=== PATIENT | female | born 1985 | race Caucasian/White ===

== ENCOUNTER → 2019-11-14 14:12 | Outpatient (CLI) | payer MEDICAID, SELFPAY ==
[2014-12-03 10:19] VITALS: BMI 32.5
[2019-11-14 14:18] LABS: Bacteria 0 SEEN /hpf (None Seen); Mucous, Urine 0 SEEN /hpf (<or=2+); Red Blood Cells-Urine 0 SEEN /hpf (0-5); White Blood Cells 0 SEEN /hpf (0-5)
[2019-11-14 15:13] LABS: hCG Titer Quant., Serum 40310 mIU/mL (1-3)
[2019-11-14 16:26] LABS: Color, Urine Yellow (Yellow); Glucose, Dipstick Normal (Normal); Ketone-Dipstick Negative (Negative); Leukocyte Esterase-Dipstick Negative /ul (Negative); Nitrite-Dipstick Negative (Negative); Occult Blood-Urine Negative /ul (Negative); Protein-Dipstick Negative (Negative); Urine Bilirubin Dipstick Negative (Negative); Urine Clarity Clear (Clear); Urine Urobilinogen Normal (Normal)
[2019-11-14 16:51] LABS: Squamous Epithelial Cells - UA 0-5 SEEN /hpf (5-10)
== END ==
PROVIDERS: Visit Provider Obstetrics & Gynecology
DX: Z34.81 Encounter for supervision of other normal pregnancy, first trimester (principal); Z12.4 Encounter for screening for malignant neoplasm of cervix; Z11.3 Encounter for screening for infections with a predominantly sexual mode of transmission; R10.9 Unspecified abdominal pain
CPT/HCPCS: 81001; 84702; 87086

== ENCOUNTER → 2019-11-21 14:35 | Outpatient (CLI) | payer MEDICAID, SELFPAY ==
[2019-11-21 15:40] LABS: Color, Urine Straw (Yellow); Glucose, Dipstick Normal (Normal); Ketone-Dipstick Negative (Negative); Leukocyte Esterase-Dipstick Negative /ul (Negative); Nitrite-Dipstick Negative (Negative); Occult Blood-Urine Negative /ul (Negative); Protein-Dipstick Negative (Negative); Specific Gravity, Urine 1.015 (1.002-1.030); Urine Bilirubin Dipstick Negative (Negative); Urine Clarity Clear (Clear); Urine Urobilinogen Normal (Normal)
[2019-11-21 15:42] LABS: Absolute Lymphocyte Count 2.36 X10^3/uL (0.83-4.51); Absolute Neutrophil Count 5.4 X10^3/uL (2.0-7.7); Basophil# 0.03 X10^3/uL; Basophil% 0.4 % (0-1); Eosinophil# 0.08 X10^3/uL; Hematocrit 43.9 % (37-47); Hemoglobin 14.9 g/dL (12.0-15.0); Lymphocyte # 2.36 X10^3/ul (4.0); Lymphocyte % 28.3 % (19-41); Mean Corp Hgb Conc 33.9 g/dL (32-36); Mean Corpuscular Hgb 29.8 pg (27.0-32.0); Mean Corpuscular Volume 87.8 fL (81-99); Monocyte# 0.41 X10^3/uL; Monocyte% 4.9 % (0-10); NRBC Flagged by Analyzer 0 % (0-5); Neutrophil # 5.42 X10^3/uL (2.7-7.7); Platelet Count 380 K/mm3 (150-450); RBC Distribution Width CV 11.9 % (11.6-14.6); RBC Distribution Width SD 38.4 fl (35.1-43.9); White Blood Count 8.3 K/mm3 (4.4-11.0)
[2019-11-21 16:03] LABS: Thyroid Stim Hormone (TSH) 2.49 uIU/mL (0.358-3.74)
[2019-11-21 16:19] LABS: Amphetamine Urine VISTA NEGATIVE (<1000 ng/mL); Barbiturate Urine VISTA NEGATIVE (< 200 ng/mL); Benzodiazepine Urine VISTA NEGATIVE (< 200 ng/mL); Cocaine Urine VISTA NEGATIVE (< 300 ng/mL); Ecstacy Urine VISTA NEGATIVE (< 500 ng/mL); Methadone Urine VISTA NEGATIVE (< 300 ng/mL); PCP Urine VISTA NEGATIVE (< 25 ng/mL); THC Urine VISTA NEGATIVE (< 50 ng/mL); Vista UDS pH Range 5
[2019-11-22 01:52] LABS: Prenatal RPR NONREACTIVE (NONREACTIVE)
[2019-11-22 11:22] LABS: HIV - WCH Non-Reactive (Nonreactive); Hepatitis B Surface Antigen Non-Reactive (Nonreactive); Hepatitis C Antibody Non-Reactive (Nonreactive)
== END ==
PROVIDERS: Visit Provider Obstetrics & Gynecology
DX: Z34.81 Encounter for supervision of other normal pregnancy, first trimester (principal)
CPT/HCPCS: 36415; 80307; 81002; 84443; 85025; 86703; 86762; 86803; 87340

== ENCOUNTER → 2020-04-07 15:35 | Outpatient (CLI) | payer MEDICAID, SELFPAY ==
[2020-04-07 17:08] LABS: Hematocrit 37.6 % (37-47); Hemoglobin 12.6 g/dL (12.0-15.0); Mean Corp Hgb Conc 33.5 g/dL (32-36); Mean Corpuscular Hgb 29.9 pg (27.0-32.0); Mean Corpuscular Volume 89.3 fL (81-99); Mean Platelet Vol. 10.8 fl (6.2-12.0); Platelet Count 297 K/mm3 (150-450); RBC Distribution Width CV 13.2 % (11.6-14.6); RBC Distribution Width SD 42.6 fl (35.1-43.9); Red Blood Count 4.21 M/mm3 (4.2-5.4); White Blood Count 11.9 K/mm3 (4.4-11.0)
[2020-04-07 17:13] LABS: Glucose Challenge Gest 1H 50g 104 mg/dL (70-140)
== END ==
PROVIDERS: Visit Provider Obstetrics & Gynecology
DX: Z34.83 Encounter for supervision of other normal pregnancy, third trimester (principal)
CPT/HCPCS: 36415; 82950; 85027

== ENCOUNTER → 2020-05-29 | Outpatient (CLI) | payer MEDICAID, SELFPAY ==
[2014-12-03 10:19] VITALS: BMI 32.5
== END | disposition home or self-care (01) ==
PROVIDERS: Referring Provider Obstetrics & Gynecology; Visit Provider Obstetrics & Gynecology
DX: Z36.85 Encounter for antenatal screening for Streptococcus B (principal)
CPT/HCPCS: 87077; 87081; 87186

== ENCOUNTER → 2020-06-20 | Outpatient (CLI) | payer MEDICAID, SELFPAY | END | disposition home or self-care (01) | LOC: MTDU 17:55 | PROVIDERS: Referring Provider Obstetrics & Gynecology; Visit Provider Obstetrics & Gynecology | DX: Z11.59 Encounter for screening for other viral diseases (principal) | CPT/HCPCS: 87635; 94799; U0003 ==

== ENCOUNTER 2020-06-26 05:00 | Inpatient (IN) | payer MEDICAID, SELFPAY ==
[2014-12-03 10:19] VITALS: BMI 32.5
--- NOTE | 2020-06-25 17:07 | PCM.HP.BLA ---
History and Physical Date of Admission: 06/26/20 ACOG ANTEPARTUM RECORD - HISTORY AND PHYSICAL (06/25/2020) Name: YU KLEIN History of This : This is a 35-year-old Ab1 who presents for repeat . She has had 2 prior section. care has otherwise been uneventful. OB Physician: KEL Iredell's Physician: Dr. Deneen Ross ...................................................................... : 1985 Age: 35 Address: [address] [place] [address] Phone: H) [phone] (O) [phone] Insurance Carrier: [facility] CLAIMS DEPT [id number] Emergency Contact: CHRISTOPHER KLEIN/ [phone] ...................................................................... Final MELISSA: 06/26/20 By Ultrasound: 8 weeks 6 days PARITY: (G-Total Pregnancies P-Fullterm,Premature,Induced AB,Spont AB, Ectopics, Multiple,Living) MELISSA CONFIRMATION: By LMP: 09/20/19 Initial Exam: 06/26/20 By First Ultrasound Exam: 06/29/20 Final MELISSA: 06/26/20 OB PROBLEM LIST: ?cHTN AMA (will be 35 years old before MELISSA) EPDS = 4 MSAFP and CF testing declined Previous C/S x 2, plans repeat C/S (contemplating a tubal) Repeat heart views at 28wga. ALLERGIES: latex Itching NKDA MEDICATIONS: 28 mg iron-800 mcg tablet daily SOCIAL HISTORY: Smoking - Never Alcohol Use - denies drinking Diet - moderate, balanced diet Lifestyle - low stress lifestyle and Exercise - minimal Employer - [employer] Job Description - Illicit Drug Use - denies use of street drugs Sexual Activity - Residence - lives with Place of - [place], [place] Spouse-Sig Other Name - Christopher Spouse-Sig Other Occupation - Self-employed contractor Spouse-Sig Other Phone No - [phone] Children Name(s) - Patti (ELB), Maxx (ELB) PRIOR DELIVERY HISTORY DEL DATE GEST LAB WT LB WT OZ TYPE ANES LABOR TX 03 Dec 15 39 0 7 14 C-Sec Spinal No 13 Jul 13 41 8 8 0 C-Sec Epidural No 29 March 12 8 0 0 0 Sab General No ANTEPARTUM FLOW CHART VISIT GE RTC FU F F VA U U DATE WK MD WKS HT PN HR M SS BP ED WT VA GL D EF ST __ ____ ___ __ __ ___ __ __ __ ___ __ __ __ ___ __ 20 May 39 JMW 1 38 + + 138/88 0 228 - - May 38 CH 1 38 V + + 130/80 0 230 - - 04 May 36 CH 1 39 V + + 130/90 0 227 tr - Apr 36 CH 1 37 V + + 130/90 0 226 tr - Apr 34 CH 2 36 V + + 140/80 sl 222 tr - 24 Apr 29 JMW 4 31 + + 144/78 0 219 - - 08 Apr 27 CH 2 30 on + 150/82 0 215 tr - March 23 CH 4 + / 211 10 Feb 17 SHM 4 21 + + 130/82 0 206 tr - Dec 12 CH 4 + ? 138/80 0 203 - - 06 Dec 11 CH 2 on US 135/90 203 tr - Nov 07 CH 4 on US 130/90 0 203 - - ANTEPARTUM NOTE(S): Jun 19 2020: Preop and PNV Jun 12 2020: Jun 03 2020: feeling well. May 29 2020: feeling well. GBS and LARC today. AM May 16 2020: feeling well. BP at homes are all in normal range. Apr 23 2020: see note, BP 116/64 at home, No PIH Sxs Apr 07 2020: feeling well. Mar 07 2020: still nauseas at times Feb 07 2020: comp u/s today Dec 19 2019: feeling well. Dec 06 2019: spotting Nov 21 2019: nausea. US and NOB today. COMPREHENSIVE ANTEPARTUM NOTE(S): Jun 19 2020: Yu is here for a PNV/ Preop. Good FM. No edema. No complaints or concerns expressed. scheduled for 06/26. Advised to get COVID-19 testing today if possible. paper work reviewed and signed. Ensure drink given. Advised to call with any questions before if necessary. MK Jun 19 2020: Covid-19 screening Order faxed to [phone] and Yu is calling to schedule to have done today if possible as she lives in [place]. JOANIE Jun 12 2020: Yu is her for her PNV today. Good FM. No edema. SVE offered and she declined it today. No questions or concerns expressed today. LJW Jun 12 2020: Reports +FM. FHR 148-155. Has Csection scheduled and no complaints or concerns. Will return next week for pre-op appt. Plans to review surgical stitching as she would like the technique used with her Maxx, not Patti. Dr. Jones let her know it was a different technique she used. Plans to discuss BTL at that appt and still unsure, but consents signed - Jun 03 2020: H taken to OB. tkg Jun 03 2020: Reviewed +GBS from last visit, but Csection is planned. Reports +FM. FHR 143. To return in 1 week for PNV. Reviewed Covid-19 testing prior to Csection. Had hospital video orientation yesterday which she really enjoyed- May 29 2020: Csection is scheduled 06-26-20 at 0730. Reports +FM. FHR 138. GBS collection today. Will start weekly appts - May 16 2020: BP this AM 108/70 at home. Has very low pelvic pressure. Painful vagina with lightening feeling. Did get support belt which helps. Will get GBS at next visit and LARC. BTL papers signed today. Will get Covid testing done at 38-39 weeks with Csections scheduled at 40 weeks. - Apr 23 2020: Yu is here for a PNV. Good FM. No edema unless on feet for long periods of time. No complaints or concerns expressed. Apr 07 2020: Reports +FM. FHR 159. Repeat US today reveals AGA with all heart views visualized. Third trimester labs done and will call if abnormal. Feeling well with no concerns. Will meet Dr. Zamorano at next visit to discuss csection scheduling and possible BTL. BTL discussion and will talk about it with her . To return in 2 weeks for routine PNV. - Mar 07 2020: Telehealth appt today. BPs at home 106/82, 114/85, and 105/82. These are her averages at home. Feels lots of +FM and really low. Glucola next visit with 3rd trimester labs and repeat US. Now 211 at home. Was so shocked it was a girl. Really thought it was a boy. Taking Unisom at HS and still nauseas, but better than before in the morning. Would like Dr. Zamorano to do her csection. Requests Yolanda as her nurse in [place]. To return in 4 weeks for repeat US and pnv with 3rd trimester labs. 15minutes . - Feb 08 2020: Anatomy scan wnl, limited heart views however. FEMALE, placenta FUNDAL. Repeat views at 28wga. BPs reviewed and ?cHTN vs. white coat component. Rx automated BP monitor. Reviewed how to take BP 1-2x/week and record. No hardship at this time due to pandemic. 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 Jan 16 2020: Tele appt today due to Covid-19 precautions. Reports feeling well with good FM. Understands Covid-19 precautions and advised when to call. Denies any spotting since last visit. Anatomy US scheduled for 4 weeks. If pandemic is still happening, will come in to office for US and do visit with CNM via telehealth again. Was having anxiety so bought a doppler. It took her awhile to find it and her stomach hurts, but she was able to find it. Reviewed with anterior placenta and fibroid it would be harder to locate. If having anxiety, no FM and concerned she can always call for a FHR check. Reviewed office still being open and nurse triage line with provider pottery decoration designer 23/05. 10 minutes spent on the phone. - Dec 19 2019: (f,m,*) Routine PNV. Reports spotting has stopped and feels reassured. FHR today 160. More nauseas with this , but starting to feel better. Feeling well with start of 2nd trimester. Plans repeat csection with BTL. Will return in 4 weeks for routine PNV. - Dec 06 2019: Called in with brown/red spotting and discharge associated with cramping. Very concerned because this never happened in her other pregnancies. Brought in today for US for reassurance. US shows IUP with no bleeding. Discussed spotting in early and fibroid s not present now. Reassurance given.Will return for routine visit. - Nov 21 2019: Dating ultrasound today reveals consistent with dates GA 8w6d MELISSA of 06/26/20. FHR 168. Anterior fibrois meauring 5.2cmx4.8cmx3.7cm. Will watch at 20 week ultrasound for growth. States has a significant history of fibroids and this is actually the first year shes had regular cycles in the last 5 due to her fibroids. Feeling well with mild nausea, but after two days of Unisom feels much better. NOB RN visit and labs today. Understands no news is good news. Will return in 4 weeks for routine PNV. - Nov 21 2019: Yu is here for her NOB visit at 8 w 6 d, she is a A1 with an MELISSA of 06/26/2020. She and , Christopher, who accompanies her today, have a 6 year old daughter and a nearly 5 year old son at home. Both children were delivered by C/S, and Yu plans to have a repeat C/S with a likely tubal at [facility]. She will breastfeed. Past history updated. Office practice patterns reviewed, including labs being collected today. Emergencies/danger signs to report, round ligament pain, reporting a suspected UTI, and common OTC medications approved/not approved for use during reviewed. Yu is a life long non-smoker, and she denies use of drugs or ETOH. Genetic Screening form completed, Yu will be 35 before MELISSA. MSAFP and CF testing declined, consent signed as such. She rakes an OTC vitamin that contains DHA, and states that she tolerates this well. She reports daily nausea, but states that she has not vomited. She wears Accupressure bracelets, and has been taking 1/2 tab of Unisom at bedtime, and states that she feels that they work, especially the Unisom. Encouraged small frequent meals with protein included throughout the day, as well as one gallon of water per 24 hours. Yu takes walks several times a week. Kegel exercises reviewed. Lifting restrictions discussed. Dietary and water needs during reviewed, including caloric needs, recommended weight gain, limiting caffeien to one cup a day, and limiting empty calories. Printed guide for food safety during provided with review. Yu states that she understands all information provided during NOB visit and that she has no questions following same. AW New Nov 14 2019: Yu is being seen for missed menses. . UPT in office is positive. LMP 1119. Pt is about 7 weeks and 6 days. MELISSA 06-26-20. Last pap 2017 WNL, pap due today. Cultured to be done today as well. Pt very anxious due to miscarriage prior. She would like to have HCGs done. Medications and allergies are up to date. AM Nov 14 2019: Here for missed menses appointment. UPT + in office. Now a (f,m,*). This was planned and welcomed. LMP known of 09/20/19 with MELISSA of 06/26/20 making her GA 7w6d. Educated on repeat with MD, but CNMs may provide care as well as PP care, well woman visits and problem visits. CNMs are not surgeons though. Understands practice collaboration. HCG today STAT for reassurance. Pap due today with GC/CT. Will send UA per request. BP slightly elevated, but looking through history this is her normal due to anxiety/white coat syndrome. For future appointments check at the end of appt. Will return in 1 week for dating US, HAIDER RN visit, labs and routine PNV. - REVIEW OF SYSTEMS: GENERAL - Denies fever, or chills SKIN - Denies rash, new skin lesions, or change in moles EYES - Denies blurred vision, or change in visual acuity EARS - Denies ear pain, or difficulty hearing NOSE - Denies nasal congestion, discharge, or bleeding MOUTH - Denies sore throat, or difficulty swallowing NECK - Denies pain or swelling RESPIRATORY - Denies shortness of breath, cough, wheezing CARDIOVASCULAR - Denies palpitations, chest pain, orthopnea, PND, peripheral edema, syncope or claudication GASTROINTESTINAL - Denies nausea, vomiting, diarrhea, constipation, Denies abdominal pain, melena and or bright red blood GENITOURINARY - Denies dysuria, frequency of urination, urgency, or hesitancy MUSCULOSKELETAL - Denies joint or muscle pain, or back pain NEUROLOGICAL - Denies localized numbness, weakness, or tingling PSYCHIATRIC - Denies depression, anxiety, substance abuse or suicide attempts ENDOCRINE - Denies heat or cold intolerance, weight loss or gain, increasing thirst HEMATO-IMMUNOLOGIC - Denies easy bruising, bleeding, oral ulcerations or recurrent infections GENETICS SCREENING: Age 35+ years: Yes Thalassemia: No Neural Tube Defect: No Down Syndrome: No DENIZ-SACHS: No Sickle Cell Disease: No Hemophilia: No Musc. Dystrophy: No Cystic Fibrosis: No-declines screening [place] Chorea: No Mental Retardation: No Fragile X: No Other genetic: No Other defects: No SABs/still births: Yes Drugs since LMP: No INFECTION HISTORY: High risk AIDS: No High risk Hepatitis: No Exposed to TB: No Exposed to Herpes: No Rash/viral illness since LMP: No History of STD: No MENSTRUAL HISTORY: *Menses Amount/Duration: 5-7Menses Regularity: RegularFrequency: monthlyMenarche (Age Onset): 11* PAST SUMMARY: PARITY: 1. Total Pregnancies............ 4 2. Full Term Pregnancies........ 2 3. Premature.................... 0 4. Abortions - Induced.......... 0 5. Abortions - Spontaneous...... 1 6. Ectopics..................... 0 7. Multiple Births.............. 0 8. Living Children.............. 2 PAST #1: Date of :.................. 03/29/12 Gestation Weeks:................ 8 Length of labor(hours):......... 0 Sex:............................ Weight-lbs:............... 0 Weight-oz:................ 0 Type of Delivery:............... Sab Type of Anesthesia:............. General Place of Delivery:.............. [place] Treatment of Labor?:.... No Comment: PAST #2: Date of :.................. 07/13/13 Gestation Weeks:................ 41 Length of labor(hours):......... 8 Sex:............................ F Weight-lbs:............... 8 Weight-oz:................ 0 Type of Delivery:............... C-Sect Type of Anesthesia:............. Epidural Place of Delivery:.............. [place] Treatment of Labor?:.... No Comment: PAST #3: Date of :.................. 02/03/15 Gestation Weeks:................ 39 Length of labor(hours):......... 0 Sex:............................ M Weight-lbs:............... 7 Weight-oz:................ 14 Type of Delivery:............... C-Sect Type of Anesthesia:............. Spinal Place of Delivery:.............. [place] Treatment of Labor?:.... No Comment: PHYSICAL EXAMINATION General Appearence: 35 yo female in no acute distress Vital Signs: AF, VSS Heart: RRR without rubs or gallops Lungs: CTA x 2 Breasts: deferred Abdomen: gravid Pelvis: Cervix: Not checked Presentation: cephalic Station: Not checked Fetus: Size: AGA Movement: present Heart: present Labs for : YU KLEIN since 09/30/2019 ORDER DATEIN DESCRIPTION VALUE UNITS RANGE A+ COMMENT CORONAVIRUS 19, RAKEL SENDOUT 06/20/20 NOTE Original Ordering Provider: Chris Zamorano COVID-19,RAKEL Not Detected Not Detected This test was developed and its performance characteristics determined by [employer]. This test has not been FDA cleared or approved. This test has been authorized by FDA under an Emergency Use Authorization (EUA). This test is only authorized for the duration of time the declaration that circumstances exist justifying the authorization of the emergency use of in vitro diagnostic tests for detection of SARS-CoV-2 virus and/or diagnosis of COVID-19 infection under section 564(b)(1) of the Act, 21 U.S.C. 360bbb-3(b)(1), unless the authorization is terminated or revoked sooner. When diagnostic testing is negative, the possibility of a false negative result should be considered in the context of a patient's recent exposures and the presence of clinical signs and symptoms consistent with COVID-19. An individual without symptoms of COVID-19 and who is not shedding SARS-CoV-2 virus would expect to have a negative (not detected) result in this assay. Reviewed by KEL CULTURE, GROUP B STREPTOCOCCUS 05/29/20 NOTE Original Ordering Provider: JESUS Lawler JOHN Culture ORGANISM 1: Streptococcus agalactiae (B) Amount Growth Growth Streptococcus agalactiae (B): REACTION Ampicillin $ <=0.25 S Benzylpenicillin NF <=0.06 S Ceftriaxone $ <=0.12 S Clindamycin $$ <=0.25 S Inducable Clindamycin Resistan NEG Linezolid $$$$ <=2 S Vancomycin $ 0.5 S Reference Range: S= Susceptible, I= Intermediate, R= Resistant MICS are expressed in micrograms per mL (NF) indicates non-formulary drug at [facility]. Approval by Infectious Disease Specialist required before non-formulary drugs may be ordered and/or dispensed. Testing performed on Vitek 2 instrument Reviewed by KEL Reviewed by KEL Reviewed by KEL GLUCOSE CHALLENGE GEST 1H 50G 04/07/20 NOTE Original Ordering Provider: JSEUS Lawler GLU GEST 50G 1H 104 mg/dL 70-140 Reviewed by KEL CBC-COMPLETE BLOOD CNT NO DIFF 04/07/20 NOTE Original Ordering Provider: JESUS Lawler WBC 11.9 K/mm3 4.4-11.0 H RBC 4.21 M/mm3 4.2-5.4 HGB 12.6 g/dL 12.0-15.0 HCT 37.6 % 37-47 MCV 89.3 fL 81-99 MCH 29.9 pg 27.0-32.0 MCHC 33.5 g/dL 32-36 RDW CV 13.2 % 11.6-14.6 RDW SD 42.6 fl 35.1-43.9 PLT 297 K/mm3 150-450 MPV 10.8 fl 6.2-12.0 Reviewed by KEL HEPATITIS C ANTIBODY 11/21/19 NOTE Original Ordering Provider: JESUS Lawler HEPATITIS C AB Non-Reactive Nonreactive Non Reactive: < 0.8 Equivocal: >/= 0.8 to < 1.0 Reactive: >/= 1.0 The CDC recommends that a reactive/equivocal HCV antibody result be followed up by the HCV Nucleic Acid Amplification test (390108) Reviewed by KEL HEPATITIS B SURFACE ANTIGEN 11/21/19 NOTE Original Ordering Provider: JESUS Lawler HEPB SURFACE AG Non-Reactive Nonreactive Reviewed by KEL HIV - [facility] 11/21/19 NOTE Original Ordering Provider: JESUS Lawler HIV - [facility] Non-Reactive Nonreactive Reviewed by KEL RUBELLA IGG 11/21/19 NOTE Original Ordering Provider: JESUS Lawler RUBELLA IGG 69.0 IU/mL Antibody results Interpretation of Immune Status < 5 IU/ml Presumed Non-immune 5 - < 10 IU/ml Equivocal > or = 10 IU/ml Presumed Immune Reviewed by KEL RPR 11/21/19 NOTE Original Ordering Provider: JESUS Lawler RPR NONREACTIVE NONREACTIVE Reviewed by KEL T AND S-NO CHARGE W/PNP 11/21/19 Reason for Type AND Screen/Red Cells: Surgery? N [facility]~[address] [place], [address]~ BLOOD TYPE GEL A POSITIVE N AB SCREEN GEL NEGATIVE N Reviewed by KEL URINE DRUG SCREEN (VISTA) 11/21/19 NOTE Original Ordering Provider: JESUS Lawler TO BE CONFIRMED CONFIRMATORY TESTING FOR ALL POSITIVE URINE DRUG SCREEN RESULTS WILL ONLY BE SENT OUT UPON PHYSICIAN ORDER. VISTA Urine Drug Screen methods provide only preliminary analytical test results. A more specific alternate chemical method must be used in order to obtain a confirmed analytical result. Gas chromatography/mass spectrometery (GC/MS) is the preferred confirmatory method. Clinical consideration and professional judgement should be applied to any drug of abuse test result, particularly when preliminary positive results are used. URINE TCA TESTING MUST BE ORDERED SEPARATELY. USE TEST MNEMONIC: [facility] UDS PH 5 AMPHETAMINES NEGATIVE <1000 ng/mL BARBITIURATES NEGATIVE < 200 ng/mL BENZODIAZIPINE NEGATIVE < 200 ng/mL COCAINE NEGATIVE < 300 ng/mL ECSTACY NEGATIVE < 500 ng/mL METHADONE NEGATIVE < 300 ng/mL OPIATES NEGATIVE < 300 ng/mL PCP NEGATIVE < 25 ng/mL THC NEGATIVE < 50 ng/mL Reviewed by KEL THYROID STIM HORMONE (TSH) 11/21/19 NOTE Original Ordering Provider: JESUS Lawler TSH 2.49 uIU/mL 0.358-3.74 Reviewed by KEL URINALYSIS, ROUTINE (DIPSTICK) 11/21/19 NOTE Original Ordering Provider: JESUS Lawler COLOR Straw Yellow CLARITY Clear Clear GLUCOSE, UR Normal mg/dl Normal BILIRUBIN URINE Negative mg/dL Negative KETONE UR Negative mg/dl Negative SP.GR. DIPSTX 1.015 1.002-1.030 PH UR 6.0 5.0 - 8.0 PROT DIPSTX Negative mg/dl Negative UROBILI Normal mg/dl Normal NITRITE UR Negative Negative OCCULT BLOOD-UR Negative /ul Negative LEUK ESTERASE Negative /ul Negative Reviewed by KEL CBC W/DIFF, AUTOMATED 11/21/19 NOTE Original Ordering Provider: JESUS Lawler WBC 8.3 K/mm3 4.4-11.0 RBC 5.00 M/mm3 4.2-5.4 HGB 14.9 g/dL 12.0-15.0 HCT 43.9 % 37-47 MCV 87.8 fL 81-99 MCH 29.8 pg 27.0-32.0 MCHC 33.9 g/dL 32-36 RDW CV 11.9 % 11.6-14.6 RDW SD 38.4 fl 35.1-43.9 PLT 380 K/mm3 150-450 MPV 10.0 fl 6.2-12.0 NEUT% 65.0 % 47-70 LY% 28.3 % 19-41 MONO% 4.9 % 0-10 EO% 1.0 % 0-5 BASO% 0.4 % 0-1 IM GRAN % 0.400 % 0.0-0.9 IG% - Immature Granulocytes (promyelocytes, myelocytes and metamyelocytes) > 1% indicates that a LEFT SHIFT is Present. ABSOLUTE NEUT 5.4 X10 3/uL 2.0-7.7 ABSOLUTE LYMPH 2.36 X10 3/uL 0.83-4.51 NRBC, FLAGGED 0 % 0-5 Reviewed by KEL CULTURE, URINE 11/14/19 NOTE Original Ordering Provider: JESUS Lawler Urine Culture Culture exhibits no growth. Reviewed by KEL Reviewed by KEL URINALYSIS, COMPLETE 11/14/19 NOTE Original Ordering Provider: JESUS Lawler COLOR Yellow Yellow CLARITY Clear Clear GLUCOSE, UR Normal mg/dl Normal BILIRUBIN URINE Negative mg/dL Negative KETONE UR Negative mg/dl Negative SP.GR. DIPSTX 1.010 1.002-1.030 PH UR 6.0 5.0 - 8.0 PROT DIPSTX Negative mg/dl Negative UROBILI Normal mg/dl Normal NITRITE UR Negative Negative OCCULT BLOOD-UR Negative /ul Negative LEUK ESTERASE Negative /ul Negative WBC 0 SEEN /hpf 0-5 RBC-UA 0 SEEN /hpf 0-5 SQUAM EPI 0-5 SEEN /hpf 5-10 BACTERIA 0 SEEN /hpf None Seen MUCUS, URINE 0 SEEN /hpf <OR=2+ Reviewed by KEL HCG TITER QUANT., SERUM 11/14/19 NOTE Original Ordering Provider: JESUS Lawler HCG QUANT. 01182 mIU/mL 1-3 H hCG levels with Gestational Age Gestational Age hCG mIU/mL (IU/L) 0.2 - 1 week 5 - 50 1-2 weeks 50 - 500 2-3 weeks 100 - 5000 3-4 weeks 500 - 39660 4-5 weeks 1000 - 32512 5-6 weeks 99418 - 100,000 6-8 weeks 78882 - 200,000 2-3 months 87712 - 100,000 Reviewed by KEL MISCELLANEOUS LAB PROCEDURE 11/14/19 NOTE Original Ordering Provider: JESUS Lawler [facility] LAB TEST IGP, Aptima HPV Age Gdln, CtNgTv Interpretation: NEGATIVE FOR INTRAEPITHELIAL LESION AND MALIGNANCY. Specimen Adequacy: Satisfactory for evaluation. Endocervical and/or squamous metaplastic cells (endocervical component) are present. Comments: The pap smear is a screening test designated to aid in the detection of pre-malignant and malignant conditions of the uterine cervix. It is not a diagnostic procedure and should not be used as the sole means of detecting cervical cancer. Both false-positive and false-negative reports do occur. This liquid based ThinPrep(R) pap test was screened with the use of an image guided system. Performed by Caryn Retana, Split Leather Mosser (ASCP) This nucleic acid amplification test detects fourteen high-risk HPV types (16,18,31,33,35,39,45,51,52,56,58,59,66,68) without differentiation. Age Gdln ACOG Testing 30-65 HPV Results: HPV Aptima: Negative Other Results: Chlamydia, Nuc. Acid Amp: Negative Gonococcus, Nuc. Acid Amp: Negative Trich vag by RAKEL: Negative TESTING PERFORMED AT [facility]. ORIGINAL REPORT ON FILE IN LAB CONTAINS ADDITIONAL TEST SITE INFORMATION. Reviewed by NICKOMAN PROVIDER SIGNATURE ( REQUIRED) Impression /Plan: 39+ week intrauterine for repeat . Contemplating a tubal. Preparations in progress for delivery.
[2020-06-26] VITALS (17 sets, daily range): BP systolic 107–153; BP diastolic 62–97; PULSE 71–103; RESP 16–18; TEMP 35.8–36.6; O2SAT 96–100; BMI 32.9
[2020-06-26] MEDS: Lactated Ringers 1,000 ML 999 ML IV (05:37)
[2020-06-26] MEDS: Acetaminophen 500 MG Tablet 1000 MG PO ×3 (05:38→19:27)
[2020-06-26 06:21] LABS: Absolute Neutrophil Count 6.4 X10^3/uL (2.0-7.7); Basophil# 0.04 X10^3/uL; Basophil% 0.4 % (0-1); Eosinophil# 0.09 X10^3/uL; Hematocrit 37.1 % (37-47); Hemoglobin 12.3 g/dL (12.0-15.0); Lymphocyte % 21.8 % (19-41); Mean Corp Hgb Conc 33.2 g/dL (32-36); Mean Corpuscular Hgb 29.7 pg (27.0-32.0); Mean Corpuscular Volume 89.6 fL (81-99); Mean Platelet Vol. 10.5 fl (6.2-12.0); Monocyte# 0.54 X10^3/uL; Monocyte% 5.9 % (0-10); NRBC Flagged by Analyzer 0 % (0-5); Neutrophil # 6.43 X10^3/uL (2.7-7.7); Neutrophil % 70.2 % (47-70); Platelet Count 280 K/mm3 (150-450); RBC Distribution Width CV 13.3 % (11.6-14.6); RBC Distribution Width SD 43.2 fl (35.1-43.9); Red Blood Count 4.14 M/mm3 (4.2-5.4); White Blood Count 9.2 K/mm3 (4.4-11.0)
[2020-06-26] MEDS: Lactated Ringers 1,000 ML 150 ML IV (06:36)
[2020-06-26] MEDS: Lactated Ringers 1,000 ML 100 ML IV (07:00)
[2020-06-26] MEDS: Sodium Citrate/Citric Acid 30 ML UDC PO (07:17)
[2020-06-26] MEDS: Cefazolin 2 GM in 0.9% Normal Saline 100 ML IV (07:17)
[2020-06-26 08:28] LABS: Chlamydia Trachomatis by PCR Negative (Negative); Neisserai gonorrhoeae by PCR Negative (Negative); Probe Check PASS; Sample Adequacy Control PASS; Specimen Processing Control PASS
--- NOTE | 2020-06-26 08:38 | OP.PCM_ITS ---
Delivery Classification: Scheduled Final MELISSA: 06/26/20 Final MELISSA Source: US <20 weeks Gestational age: 40 Weeks and 0 Days manager banquet: Javy Camilo Type of Anesthesia:: Spinal - With Duramorph Date of Procedure: 06/26/20 Pre-Operative Diagnosis: Prior Section, Desires Permanent Sterilization Post-Operative Diagnosis: Prior Section, Desires Permanent Sterilization Description of Procedure: Surgeon: Chris Zamorano MD, FACOG Anesthesia: Lucio Antunez CRNA Procedure: Repeat Low Transverse Cervical Caesarean Section And Bilateral Tubal Occlusion with Filshie Clips Findings: Viable female with Apgars of 9/9 in occiput anterior presentation with clear amniotic fluid and normal three-vessel placenta. Indication: This is a 35-year-old who presents for her third at 40 weeks gestation. care has otherwise been uneventful except that the patient desires permanent sterilization. She is considered this form of control for quite some time. The patient has been counseled regarding the risk and indications of this procedure including the possibility of bleeding infection and injury to surrounding structures such as bowel bladder. She also understands the permanent nature of her tubal, the failure rate of 1 to 2%, and the availability of other nonpermanent control options. All questions were answered. Procedure: Patient was taken to the operating room where after spinal anesthesia was placed, the patient was prepped and draped in usual sterile fashion and a Razo catheter was placed. The abdomen was entered through the patient's prior Pfannenstiel incision and peritoneum was entered bluntly. After developing a bladder flap on the lower uterine segment a low transverse incision was made on the uterus and head was easily delivered onto the operative field the nose mouth and oropharynx were bulb suctioned. Subsequently a viable female infant was born with Apgars of 9/9. The was noted to cry move all extremities vigorously on the operative field. The umbilical cord was doubly clamped and ligated and handed to the nursery personnel who were present for the delivery. Placenta was delivered and noted to be 3 vessels and normal. Uterus was exteriorized and remaining placental tissue was removed. The uterus was then closed in 2 layers first with running locked 0 Vicryl suture followed by a second imbricating layer with 0 Vicryl suture. 0 Vicryl suture was then used in a horizontal mattress interrupted fashion to affect final hemostasis of the uterine incision line. Normal fallopian tubes and ovaries were visualized and Filshie clips were placed approximately 1 to 2 cm from the uterine fundus on each fallopian tube. The uterus was returned to the pelvis. Hemostasis was noted and rectus abdominis muscles were reapproximated in the midline with interrupted Number 0 Vicryl suture in a horizontal mattress fashion. Fascia was closed with running Number 1 PDS Strata fix suture. Subcutaneous tissue was irrigated with copious amouts of saline solution and then closed with running 3- 0 Vicryl suture. Skin was closed with 4-0 monocryl suture in a running subcuticular fashion. Steri strips and a Mepilex dressing were placed across the incision. The patient tolerated the procedure well and was taken to the recovery room in satisfactory condition. Sponge, needle, and instrument counts were all reportedly correct. EBL was less than 500 cc. Ancef 2 gms IV was given prior to the procedure. Spicemen to Pathology: None Complications: None Amniotic Membrane Rupture Type: Spontaneous Amniotic Fluid Description: Clear Placenta Disposition: [facility] Specimen(s) sent to pathology: None Drain: Razo to straight drain Cord Entanglement: Around neck x 1, tight Cord Vessel Description: 3 Vessels Esitmated Blood Loss (ml): 500 cc Infant Gender: Female (1 minute): 9 (5 minute): 9 Antibiotic Given: Ancef 2 grams IV x1 Pt instructed on risks of surgery: Bleeding, Infection, Permanency, Failure Rate of 1 to 2%, Injury to surrounding structure(s) including bowel and bladder, Availability of other non-permanent control options - Admit VTE Documentation VTE Present on Admission: Yes VTE Mechan Device Prophylaxis: SCD's VTE Pharm Prophylaxis ordered?: Yes
--- NOTE | 2020-06-26 08:47 | DCINST_ITS ---
Discharge Diet: No Restrictions Discharge Activity: May Not Drive - for 2 weeks, May not drive while taking narcotic pain medications., May Shower, May Take a Tub Bath May resume sexual activity in: 4-6 weeks Lifting Restrictions: 20 pounds Additional Activity Instructions:: Nothing in the vagina for 4-6 weeks. You may return to work/school in 6 weeks. Call your doctor if your incision/area has: Continuous Slow Oozing, Sudden Increased Bleeding, Increased Pain/ Swelling, Increased Redness, Foul Smelling Discharge Call your doctor if you observe: Fever of 101 or Higher, Inability to urinate, Inability to have a bowel movement, Using more than one pad per hour Additional Instructions: If you experience any of the following, contact your healthcare provider. * Bleeding that soaks a pad every hour for 2 hours * Fever 100.4 or higher * Unrelieved incision or abdominal pain * Swelling, redness, discharge or bleeding from your incision or episiotomy site * Your incision begins to separate * Problems urinating (including inability to urinate or burning while urinating). * Visual changes * Severe headache * Flu-like symptoms * Pain or redness in one of both of your breasts * Pain, warmth, tenderness or swelling in your legs, especially the calf area * Frequent nausea and vomiting * Symptoms of depression or anxiety If you experience any of the following, call 911 or go to the nearest Emergency Room. * Chest pain * Problems breathing * Seizure activity * Partial or complete paralysis of a body part, slurred speech, weakness or drooping of the face, or a sudden inability to walk or hold your balance Allergies/Adverse Reactions: Allergies latex Allergy (Verified 06/26/20 05:33) Rash Medications to take at Discharge Vits [Prenatabs FA ] 1 tablet PO DAILY 12/02/14 Cetirizine HCl [Allergy Relief] 10 mg PO DAILY 06/26/20 Docusate Sodium [Colace] 100 mg PO BID PRN PRN #60 cap 06/26/20 Oxycodone [Oxyir] 5 mg PO Q6H PRN PRN 7 Days #20 tab 06/26/20 The following prescriptions were given: Docusate Sodium [Colace] 100 mg PO BID PRN PRN #60 cap PRN Reason: Constipation Transmission Status: Received by [facility] Oxycodone [Oxyir] 5 mg PO Q6H PRN PRN 7 Days #20 tab PRN Reason: Pain Score 6-10/10 Transmission Status: Received by [facility] Follow-Up: Call to make an appointment with your doctor for an incision check in 1-2 weeks. You will also need a 6 week post- follow up appointment. Test results from this visit will be discussed in further detail at your follow- up appointment, if applicable. Please Follow Up With: Chris Zamorano MD - [phone] When: Call to make an appointment for an incision check in 2 weeks. Primary Care Physician: Care Physician,No Primary [Primary Care Provider] -
[2020-06-26] MEDS: Oxytocin 30 units/NS 500 ml 30 UNITS/500 ML IV.SOLN 167 UNITS IV (08:50)
[2020-06-26] MEDS: Ketorolac 30 MG/ML Syringe IV ×2 (12:56→19:26)
[2020-06-26] MEDS: Cefazolin 1 GM/50 ML BAG IV ×2 (14:16→22:11)
[2020-06-26] MEDS: 0.9% Saline Lock 10 ML Syringe IV ×3 (19:26→22:11)
[2020-06-26] MEDS: Enoxaparin 40 MG/0.4 ML Syringe SC (21:08)
[2020-06-27] MEDS: Acetaminophen 500 MG Tablet 1000 MG PO ×4 (01:12→20:07)
[2020-06-27] MEDS: Calcium Carbonate 500 MG Tablet 1000 MG PO (01:12)
[2020-06-27] MEDS: Ketorolac 30 MG/ML Syringe IV ×2 (01:12→07:25)
[2020-06-27] MEDS: 0.9% Saline Lock 10 ML Syringe IV ×2 (01:13→07:26)
[2020-06-27 01:20] VITALS: BP 123/77; PULSE 84; RESP 16; TEMP 36.8
[2020-06-27 05:35] VITALS: BP 120/73; PULSE 86; RESP 18; TEMP 36.6
[2020-06-27 05:42] LABS: Hematocrit 30.9 % (37-47); Hemoglobin 10.3 g/dL (12.0-15.0); Mean Corp Hgb Conc 33.3 g/dL (32-36); Mean Corpuscular Hgb 29.9 pg (27.0-32.0); Mean Corpuscular Volume 89.8 fL (81-99); Mean Platelet Vol. 10.1 fl (6.2-12.0); Platelet Count 211 K/mm3 (150-450); RBC Distribution Width CV 13.4 % (11.6-14.6); RBC Distribution Width SD 43.8 fl (35.1-43.9); Red Blood Count 3.44 M/mm3 (4.2-5.4); White Blood Count 10.2 K/mm3 (4.4-11.0)
[2020-06-27 08:45] VITALS: BP 126/77; PULSE 89; RESP 16; TEMP 36.3; O2SAT 96
--- NOTE | 2020-06-27 08:52 | PCM.PN.OB ---
<Eva Lawler - Last Filed: 06/27/20 08:52> Subjective: Feeling okay this morning. Is excited to get up out of bed to take a shower. Has been up to the bathroom. Urinating well and starting to feel her bowels moving. Tolerating a regular diet. Pain is well controlled with IV now out. Denies heavy bleeding. Objective: VSS. Fundus is firm, midline, u/1. Lochia rubra scant. Surgical dressing CDI - Physical Exam Vitals/I&O's: Vital Signs Temp Pulse Resp BP Pulse Ox 97.4 F L 89 16 126/77 H 96 06/27/20 08:45 06/27/20 08:45 06/27/20 08:45 06/27/20 08:45 06/27/20 08:45 Oxygen Delivery Method Room Air Weight: 104.2 kg Body Mass Index (BMI) 32.9 Intake and Output for Last 24 Hours 06/25/20 06/26/20 06/27/20 23:59 23:59 23:59 Intake Total 3684.7 / 3684.7 Output Total 1700 / 1700 800 / 800 Balance / 1983.7 -800 / -800 General: Alert, Oriented x3, Cooperative HEENT: Atraumatic, PERRLA, EOMI, Normocephalic Neck: Supple, No JVD, Negative Carotid Bruits Lungs: Clear to auscultation, Normal air movement Cardiovascular: Regular rate, No murmurs Abdomen: Bowel Sounds Present, Soft, Non Tender, Passing Flatus, Hypoactive Bowel Sounds Extremities: No edema, Capillary Refill Less than 3 Seconds Skin: No rashes, No breakdown Musculoskeletal: No Tenderness to Palpation of Joints or Extremities Neurological: Cranial nerves II-XII grossly intact Psych/Mental Status: Normal Affect, Appropriate Laboratory Results 06/27/20 05:35: WBC 10.2, RBC 3.44 L, Hgb 10.3 L, Hct 30.9 L, MCV 89.8, MCH 29.9, MCHC 33.3, RDW Std Deviation 43.8, RDW Coeff of Gillian 13.4, Plt Count 211, MPV 10.1 Current Medications Acetaminophen (Tylenol) 1,000 mg PO Q6 [facility] Last Admin: 06/27/20 07:25 Dose: 1,000 mg Documented by: Bisacodyl (Dulcolax) 10 mg RECTAL UD PRN PRN Reason: If no BM Calcium Carbonate (Tums) 1,000 mg PO Q12H PRN PRN PRN Reason: HEARTBURN Last Admin: 06/27/20 01:12 Dose: 1,000 mg Documented by: Diphenhydramine HCl (Benadryl) 25 mg PO Q6H PRN PRN PRN Reason: ITCHING Stop: 06/27/20 08:52 Enoxaparin Sodium (Lovenox) 40 mg SC Q24H [facility] Last Admin: 06/26/20 21:08 Dose: 40 mg Documented by: Hydrocortisone (Hytone) 1 applic TOPICAL TID PRN PRN; Protocol PRN Reason: Discomfort Naloxone HCl 4 mg/ Dextrose 504 mls @ 0 mls/hr IV .Q0M PRN; Protocol PRN Reason: Respiratory depression Ibuprofen (Motrin) 600 mg PO Q6H [facility] Loratadine (Claritin) 10 mg PO DAILY [facility] Measles/Mumps/Rubella Vaccine Live (M-M-R Ii) 0.5 ml SC .ONCE ONE Stop: 06/27/20 10:01 Methylergonovine Maleate (Methergine) 0.2 mg IM X1 PRN PRN Reason: Uterine Atony Nalbuphine HCl (Nubain) 5 mg IV Q3H PRN PRN PRN Reason: ITCHING Stop: 06/27/20 08:52 Naloxone HCl (Narcan) 0.02 mg IV Q1M PRN PRN Reason: RR <10 and pt unresponsive Ondansetron HCl (Zofran) 4 mg IV Q4H PRN PRN PRN Reason: Nausea Oxycodone HCl (Oxyir) 5 - 10 mg PO Q4H PRN PRN PRN Reason: Pain Score 4-10/10 Prochlorperazine Edisylate (Compazine Iv) 10 mg IV Q6H PRN PRN PRN Reason: NAUSEA Senna/Docusate Sodium (Senokot-S, Roslyn-Colace) 0 tablet PO DAILY [facility] Last Admin: 06/26/20 14:53 Dose: Not Given Documented by: Simethicone (Mylicon) 80 mg PO PCHS PRN PRN Reason: Indigestion/stomach pain Sodium Chloride () 5 - 15 ml IV UD PRN PRN Reason: SALINE FLUSH Last Admin: 06/27/20 07:26 Dose: 10 ml Documented by: Medical Necessity - Tobacco Use Smoking Status: Never smoker Assessment/Plan A/P: S/P Repeat C/S POD #1 Pain well controlled Normal involution and lochia mother Dyad stable Expecting discharge tomorrow <Yoana Camilo - Last Filed: 06/27/20 12:19> - Physical Exam Vitals/I&O's: Vital Signs Temp Pulse Resp BP Pulse Ox 97.4 F L 89 16 126/77 H 96 06/27/20 08:45 06/27/20 08:45 06/27/20 08:45 06/27/20 08:45 06/27/20 08:45 Oxygen Delivery Method Room Air Weight: 104.2 kg Body Mass Index (BMI) 32.9 Intake and Output for Last 24 Hours 06/25/20 06/26/20 06/27/20 23:59 23:59 23:59 Intake Total 3684.7 / 3684.7 Output Total 1700 / 1700 800 / 800 Balance / 1983.7 -800 / -800 Laboratory Results 06/27/20 05:35: WBC 10.2, RBC 3.44 L, Hgb 10.3 L, Hct 30.9 L, MCV 89.8, MCH 29.9, MCHC 33.3, RDW Std Deviation 43.8, RDW Coeff of Gillian 13.4, Plt Count 211, MPV 10.1 Current Medications Acetaminophen (Tylenol) 1,000 mg PO Q6 [facility] Last Admin: 06/27/20 07:25 Dose: 1,000 mg Documented by: Bisacodyl (Dulcolax) 10 mg RECTAL UD PRN PRN Reason: If no BM Calcium Carbonate (Tums) 1,000 mg PO Q12H PRN PRN PRN Reason: HEARTBURN Last Admin: 06/27/20 01:12 Dose: 1,000 mg Documented by: Enoxaparin Sodium (Lovenox) 40 mg SC Q24H [facility] Last Admin: 06/26/20 21:08 Dose: 40 mg Documented by: Hydrocortisone (Hytone) 1 applic TOPICAL TID PRN PRN; Protocol PRN Reason: Discomfort Naloxone HCl 4 mg/ Dextrose 504 mls @ 0 mls/hr IV .Q0M PRN; Protocol PRN Reason: Respiratory depression Ibuprofen (Motrin) 600 mg PO Q6H [facility] Loratadine (Claritin) 10 mg PO DAILY [facility] Methylergonovine Maleate (Methergine) 0.2 mg IM X1 PRN PRN Reason: Uterine Atony Naloxone HCl (Narcan) 0.02 mg IV Q1M PRN PRN Reason: RR <10 and pt unresponsive Ondansetron HCl (Zofran) 4 mg IV Q4H PRN PRN PRN Reason: Nausea Oxycodone HCl (Oxyir) 5 - 10 mg PO Q4H PRN PRN PRN Reason: Pain Score 4-10/10 Prochlorperazine Edisylate (Compazine Iv) 10 mg IV Q6H PRN PRN PRN Reason: NAUSEA Senna/Docusate Sodium (Senokot-S, Roslyn-Colace) 0 tablet PO DAILY [facility] Last Admin: 06/26/20 14:53 Dose: Not Given Documented by: Simethicone (Mylicon) 80 mg PO PCHS PRN PRN Reason: Indigestion/stomach pain Sodium Chloride () 5 - 15 ml IV UD PRN PRN Reason: SALINE FLUSH Last Admin: 06/27/20 07:26 Dose: 10 ml Documented by: Assessment/Plan POD#1 s/p repeat c/s. Acute blood loss anemia secondary to surgery. Home tomorrow.
[2020-06-27 13:00] VITALS: BP 126/86; PULSE 92; RESP 16; TEMP 36.9; O2SAT 97
[2020-06-27] MEDS: Ibuprofen 600 MG Tablet PO ×2 (13:41→18:28)
[2020-06-27] MEDS: Senna/Docusate Sodium 1 Tablet PO (13:45)
[2020-06-27] MEDS: oxyCODONE 5 MG Tablet PO (18:56)
[2020-06-27] MEDS: Enoxaparin 40 MG/0.4 ML Syringe SC (20:08)
[2020-06-27 20:25] VITALS: BP 135/84; PULSE 86; RESP 18; TEMP 36.7
[2020-06-28] MEDS: Ibuprofen 600 MG Tablet PO ×2 (00:46→07:56)
[2020-06-28] MEDS: Acetaminophen 500 MG Tablet 1000 MG PO ×2 (01:14→09:04)
[2020-06-28] MEDS: oxyCODONE 5 MG Tablet PO (01:17)
[2020-06-28 01:20] VITALS: BP 123/77; PULSE 85; RESP 16; TEMP 36.8
[2020-06-28 07:58] VITALS: BP 136/86; PULSE 87; RESP 16; TEMP 36.7; O2SAT 97
[2020-06-28 09:40] VITALS: BP 136/86; PULSE 91; RESP 16; TEMP 36.6; O2SAT 96
--- NOTE | 2020-06-28 10:57 | PN.OBGYN_ITS ---
<Eva Lawler - Last Filed: 06/28/20 10:57> Subjective: Feels great and not even needing Tylenol today. Has been ambulating around her room, tolerating a regular diet, urinating well and passing flatus. is going well with no concerns at all. Denies heavy bleeding. Ready to discharge today. Objective: VSS. Fundus is firm, midline, u/1. Lochia rubra scant. Incision is CDI. - Physical Exam Vitals/I&O's: Vital Signs Temp Pulse Resp BP Pulse Ox 97.9 F 91 16 136/86 H 96 06/28/20 09:40 06/28/20 09:40 06/28/20 09:40 06/28/20 09:40 06/28/20 09:40 Oxygen Delivery Method Room Air Weight: 104.2 kg Body Mass Index (BMI) 32.9 Intake and Output for Last 24 Hours 06/26/20 06/27/20 06/28/20 23:59 23:59 23:59 Intake Total 3684.7 / 3684.7 Output Total 1700 / 1700 800 / 800 Balance 1983.7 / 1983.7 -800 / -800 General: Alert, Oriented x3, Cooperative HEENT: Atraumatic, PERRLA, EOMI, Normocephalic Neck: Supple, No JVD, Negative Carotid Bruits Lungs: Clear to auscultation, Normal air movement Cardiovascular: Regular rate, No murmurs Abdomen: Bowel Sounds Present, Soft, Non Tender, - - incision Extremities: No edema, Capillary Refill Less than 3 Seconds Skin: No rashes, No breakdown, Incision - CDI Musculoskeletal: No Tenderness to Palpation of Joints or Extremities Neurological: Cranial nerves II-XII grossly intact Psych/Mental Status: Normal Affect, Appropriate Current Medications Acetaminophen (Tylenol) 1,000 mg PO Q6 [facility] Last Admin: 06/28/20 09:04 Dose: 1,000 mg Documented by: Bisacodyl (Dulcolax) 10 mg RECTAL UD PRN PRN Reason: If no BM Calcium Carbonate (Tums) 1,000 mg PO Q12H PRN PRN PRN Reason: HEARTBURN Last Admin: 06/27/20 01:12 Dose: 1,000 mg Documented by: Enoxaparin Sodium (Lovenox) 40 mg SC Q24H [facility] Last Admin: 06/27/20 20:08 Dose: 40 mg Documented by: Hydrocortisone (Hytone) 1 applic TOPICAL TID PRN PRN; Protocol PRN Reason: Discomfort Naloxone HCl 4 mg/ Dextrose 504 mls @ 0 mls/hr IV .Q0M PRN; Protocol PRN Reason: Respiratory depression Ibuprofen (Motrin) 600 mg PO Q6H [facility] Last Admin: 06/28/20 07:56 Dose: 600 mg Documented by: Loratadine (Claritin) 10 mg PO DAILY [facility] Last Admin: 06/27/20 13:43 Dose: Not Given Documented by: Methylergonovine Maleate (Methergine) 0.2 mg IM X1 PRN PRN Reason: Uterine Atony Naloxone HCl (Narcan) 0.02 mg IV Q1M PRN PRN Reason: RR <10 and pt unresponsive Ondansetron HCl (Zofran) 4 mg IV Q4H PRN PRN PRN Reason: Nausea Oxycodone HCl (Oxyir) 5 - 10 mg PO Q4H PRN PRN PRN Reason: Pain Score 4-10/10 Last Admin: 06/28/20 01:17 Dose: 5 mg Documented by: Prochlorperazine Edisylate (Compazine Iv) 10 mg IV Q6H PRN PRN PRN Reason: NAUSEA Senna/Docusate Sodium (Senokot-S, Roslyn-Colace) 0 tablet PO DAILY [facility] Last Admin: 06/27/20 13:45 Dose: 1 tablet Documented by: Simethicone (Mylicon) 80 mg PO PCHS PRN PRN Reason: Indigestion/stomach pain Sodium Chloride () 5 - 15 ml IV UD PRN PRN Reason: SALINE FLUSH Last Admin: 06/27/20 07:26 Dose: 10 ml Documented by: Medical Necessity - Tobacco Use Smoking Status: Never smoker Assessment/Plan A/P: POD #2 Repeat mother Normal involution and course Pain well tolerated with Ibuprofen and Tylenol PRN Has incision check scheduled Educated on removing her dressing in 5-7 days and signs of infection To discharge home today <Yoana Camilo - Last Filed: 06/28/20 11:34> - Physical Exam Vitals/I&O's: Vital Signs Temp Pulse Resp BP Pulse Ox 97.9 F 91 16 136/86 H 96 06/28/20 09:40 06/28/20 09:40 06/28/20 09:40 06/28/20 09:40 06/28/20 09:40 Oxygen Delivery Method Room Air Weight: 104.2 kg Body Mass Index (BMI) 32.9 Intake and Output for Last 24 Hours 06/26/20 06/27/20 06/28/20 23:59 23:59 23:59 Intake Total 3684.7 / 3684.7 Output Total 1700 / 1700 800 / 800 Balance 1984.7 / 1984.7 -800 / -800 Current Medications Acetaminophen (Tylenol) 1,000 mg PO Q6 [facility] Last Admin: 06/28/20 09:04 Dose: 1,000 mg Documented by: Bisacodyl (Dulcolax) 10 mg RECTAL UD PRN PRN Reason: If no BM Calcium Carbonate (Tums) 1,000 mg PO Q12H PRN PRN PRN Reason: HEARTBURN Last Admin: 06/27/20 01:12 Dose: 1,000 mg Documented by: Enoxaparin Sodium (Lovenox) 40 mg SC Q24H [facility] Last Admin: 06/27/20 20:08 Dose: 40 mg Documented by: Hydrocortisone (Hytone) 1 applic TOPICAL TID PRN PRN; Protocol PRN Reason: Discomfort Naloxone HCl 4 mg/ Dextrose 504 mls @ 0 mls/hr IV .Q0M PRN; Protocol PRN Reason: Respiratory depression Ibuprofen (Motrin) 600 mg PO Q6H [facility] Last Admin: 06/28/20 07:56 Dose: 600 mg Documented by: Loratadine (Claritin) 10 mg PO DAILY [facility] Last Admin: 06/27/20 13:43 Dose: Not Given Documented by: Methylergonovine Maleate (Methergine) 0.2 mg IM X1 PRN PRN Reason: Uterine Atony Naloxone HCl (Narcan) 0.02 mg IV Q1M PRN PRN Reason: RR <10 and pt unresponsive Ondansetron HCl (Zofran) 4 mg IV Q4H PRN PRN PRN Reason: Nausea Oxycodone HCl (Oxyir) 5 - 10 mg PO Q4H PRN PRN PRN Reason: Pain Score 4-10/10 Last Admin: 06/28/20 01:17 Dose: 5 mg Documented by: Prochlorperazine Edisylate (Compazine Iv) 10 mg IV Q6H PRN PRN PRN Reason: NAUSEA Senna/Docusate Sodium (Senokot-S, Roslyn-Colace) 0 tablet PO DAILY [facility] Last Admin: 06/27/20 13:45 Dose: 1 tablet Documented by: Simethicone (Mylicon) 80 mg PO PCHS PRN PRN Reason: Indigestion/stomach pain Sodium Chloride () 5 - 15 ml IV UD PRN PRN Reason: SALINE FLUSH Last Admin: 06/27/20 07:26 Dose: 10 ml Documented by: Assessment/Plan 35 yo POD#2 s/p repeat section. . Home today.
== END 2020-06-28 11:00 | disposition home or self-care (01) | DRG 539 ==
PROVIDERS: Obstetrics & Gynecology; Admitting Provider Obstetrics & Gynecology; Referring Provider Obstetrics & Gynecology; Visit Provider Obstetrics & Gynecology
PROC: 10D00Z1 Extraction of Products of Conception, Low, Open Approach (ICD-10-PCS; CPT 59514; principal; 2020-06-26 07:15)
DX: O34.211 Maternal care for low transverse scar from previous cesarean delivery (principal); O69.1XX0 Labor and delivery complicated by cord around neck, with compression, not applicable or unspecified; O99.02 Anemia complicating childbirth; D62 Acute posthemorrhagic anemia; Z3A.39 39 weeks gestation of pregnancy; Z37.0 Single live birth
CPT/HCPCS: 85025; 85027; 86850; 86900; 86901; 87491; 87591; 99218; J7120; A4216; G0378; J2405